=== PATIENT | female | born 1935 | race Caucasian/White ===

== ENCOUNTER 2021-07-14 06:33 | Day surgery (SDC) | payer MEDICARE, BC ==
[2021-07-14] MEDS ORDERED: Dextrose 5%-Lactated Ringers 1,000 ML IV SCH (07:00)
[2021-07-14] MEDS ORDERED: Linezolid 600 MG in Premix Bag 1 BAG IV ONE (07:00)
[2021-07-14] MEDS ORDERED: Acetaminophen 325 MG Tab PO ONE (07:00)
[2021-07-14] MEDS ORDERED: Lidocaine 1% 20 ML MDV ONE (07:44)
[2021-07-14] MEDS ORDERED: Bupivacaine 0.5% 50 ML MDV ONE (07:44)
[2021-07-14] MEDS ORDERED: Bacitracin Oint 1 GM U/D Packet ONE (07:44)
[2021-07-14] MEDS ORDERED: Lidocaine 1% with EPINEPHrine 1:100,000 50 ML MDV ONE (07:44)
[2021-07-14] MEDS ORDERED: Propofol 200 MG/20 ML SDV ONE (07:45)
[2021-07-14] MEDS ORDERED: fentaNYL 100 MCG/2 ML SDV ONE (07:45)
[2021-07-14] MEDS ORDERED: Meropenem 500 MG SDV ONE (08:53)
[2021-07-14 10:25] VITALS: BP 135/69; PULSE 64
== END 2021-07-14 10:45 | disposition home or self-care (01) ==
LOC: JP.SDS 06:33
PROVIDERS: ATTEND Surgery
DX: L72.0 Epidermal cyst (principal)
CPT/HCPCS: 11443; 12053; A9270; J2020; J2185; J2704; J3010; J3490; J7121